=== PATIENT | male | born 1985 | race Caucasian/White ===

== ENCOUNTER 2016-06-16 16:11 | Inpatient (IN) | payer MEDICAID ==
[~2016-06-16] VITALS: Ht 175.3 cm; Wt 109.4 kg
[~2016-06-16 16:11] MED LIST: BUPR200T2 PO; CLON1TAB PO; INSUINJ37 SUBCUT; QUET300T14 PO
[2016-06-16] MEDS ORDERED: SODIUM CHLORIDE 0.9% 1,000 ML IVB ONE (16:27)
[2016-06-16 16:45] LABS: Basophils # (auto) 0 uL; Basophils % (auto) 0.2 % (0.0-2.0); Eosinophils # (auto) 0 uL; Eosinophils % (auto) 0.1 % (0.0-7.0); Hemoglobin 14.5 g/dL (13.5-17.5); Lymphocytes % (auto) 18.1 % (10.0-50.0); Mean Corpuscular Hemoglobin 30.3 pg (28.0-32.0); Mean Corpuscular Hgb Conc. 33.7 g/dL (32.0-36.0); Mean Platelet Volume 8.2 fL (7.4-10.4); Monocytes # (auto) 0.7 uL; Monocytes % (auto) 6.3 % (0.0-12.0); Neutrophils # (auto) 8.5 uL; Neutrophils % (auto) 75.3 % (37.0-80.0); Platelet Count (auto) 280 10^3/uL (140-450); Red Cell Distribution Width 15.9 % (11.6-16.0); White Blood Cell 11.3 10^3/uL (4.4-10.8)
[2016-06-16 17:01] LABS: INR 1.01 (0.9-1.15); Partial Thromboplastin Time 24.5 sec (22.64-33.71); Prothrombin Time 10.9 sec (9.37-12.3)
[2016-06-16 17:21] LABS: Albumin 3.6 g/dL (3.4-5.0); BUN/Creatinine Ratio 17.5; Calcium 7.9 mg/dL (8.5-10.1); Magnesium 1.8 mg/dL (1.6-2.6); Potassium 3.2 mmol/L (3.5-5.1)
[2016-06-16 17:23] LABS: Bilirubin, Total 0.7 mg/dL (0.2-1.0); Total Protein 7.1 g/dL (6.4-8.2)
[2016-06-16] MEDS ORDERED: KETOROLAC TROMETH 30 MG/ML 1ML VIAL IV ONE ×2 (17:30→21:15)
[2016-06-16 17:32] LABS: Urine Bilirubin Negative (Negative); Urine Blood Negative /uL (Negative); Urine Color Yellow (Yellow); Urine Nitrite Negative (Negative); Urine RBC <1 /hpf (0 - 3); Urine Squamous Epithelial Cell FEW /hpf (<5); Urine Urobilinogen Normal (Negative); Urine pH 5.5 (5.0-8.0)
[2016-06-16 17:35] LABS: Urine Glucose 4+ mg/dL (Normal); Urine Ketone 2+ (Negative)
[2016-06-16] MEDS ORDERED: InsuLIN R (HUMAN) 100 UNITS in SODIUM CHL 0.9% 99 ML IV SCH (19:44)
[2016-06-16] MEDS ORDERED: DEXTROSE (50%) 50ML SYRG IV PRN (19:45)
[2016-06-16] MEDS: ACCU-CHEK COMFORT CURVE STRIP VI SCH ×4 (20:00→23:15)
[2016-06-16] MEDS ORDERED: InsuLIN REG 1unit/0.01ml Soln (100units/ml) ONE (20:32)
[2016-06-16] MEDS: SODIUM CHLORIDE 0.9% 1,000 ML IV SCH ×2 (20:34→21:44)
[2016-06-16] MEDS ORDERED: ACETAMINOPHEN 325 MG TAB PO ONE (21:00)
[2016-06-16 21:14] LABS: BUN/Creatinine Ratio 11.5; Potassium 3.2 mmol/L (3.5-5.1)
[2016-06-16] MEDS ORDERED: PANTOPRAZOLE SODIUM 40 MG/10 ML VIAL IV ONE ×2 (22:30→23:15)
[2016-06-16] MEDS ORDERED: NITROGLYCERIN 0.4 MG SL TAB SL PRN (23:15)
[2016-06-16] MEDS ORDERED: MORPHINE SULF INJ 2 MG/ML SYRINGE 1ML IV PRN (23:15)
[2016-06-16] MEDS ORDERED: TEMAZEPAM 15 MG CAP PO PRN (23:15)
[2016-06-16] MEDS ORDERED: SODIUM CHLORIDE 0.9% 1,000 ML IV SCH (23:44)
[2016-06-17 00:08] LABS: Amylase 26 U/L (25-115)
[2016-06-17] MEDS: ACCU-CHEK COMFORT CURVE STRIP VI SCH ×11 (00:20→20:16)
[2016-06-17] MEDS: NALBUPHINE HCL 10 MG/1ml INJECTION IV PRN ×3 (00:31→13:20)
[2016-06-17 01:51] LABS: BUN/Creatinine Ratio 12.3; Calcium 7.6 mg/dL (8.5-10.1)
[2016-06-17 01:54] LABS: Potassium 2.7 mmol/L (3.5-5.1)
[2016-06-17] MEDS: ACETAMINOPHEN 325 MG TAB PO PRN (01:58)
[2016-06-17] MEDS ORDERED: POTASSIUM CHL 20 Meq TABLET PO ONE (02:15)
[2016-06-17] MEDS ORDERED: CALCIUM CARB 500 MG CHEW TAB PO PRN (02:30)
[2016-06-17] MEDS: ONDANSETRON HCL 4 MG/2 ML VIAL IV PRN ×5 (03:24→20:40)
[2016-06-17 04:20] LABS: Basophils # (auto) 0 uL; Basophils % (auto) 0.3 % (0.0-2.0); Eosinophils # (auto) 0.1 uL; Hematocrit 35.5 % (41.0-53.0); Mean Corpuscular Hemoglobin 30.8 pg (28.0-32.0); Mean Corpuscular Hgb Conc. 33.8 g/dL (32.0-36.0); Mean Corpuscular Volume 90.9 fL (80.0-100.0); Mean Platelet Volume 8.3 fL (7.4-10.4); Monocytes # (auto) 0.5 uL; Monocytes % (auto) 6.7 % (0.0-12.0); Neutrophils # (auto) 5.6 uL; Platelet Count (auto) 189 10^3/uL (140-450); Red Cell Distribution Width 15.7 % (11.6-16.0); White Blood Cell 8.2 10^3/uL (4.4-10.8)
[2016-06-17 04:27] LABS: Albumin 2.8 g/dL (3.4-5.0); BUN/Creatinine Ratio 15.9; Bilirubin, Total 1.1 mg/dL (0.2-1.0); Calcium 7.6 mg/dL (8.5-10.1); Potassium 3.1 mmol/L (3.5-5.1); Total Protein 5.6 g/dL (6.4-8.2)
[2016-06-17] MEDS: SODIUM CHLORIDE 0.9% 1,000 ML IV SCH ×4 (04:40→21:45)
[2016-06-17] MEDS ORDERED: DEXTROSE (50%) 50ML SYRG IV PRN (07:15)
[2016-06-17] MEDS: InsuLIN REG 1unit/0.01ml Soln (100units/ml) SC SCH ×4 (08:26→20:40)
[2016-06-17] MEDS ORDERED: ENOXAPARIN SOD 30 MG/0.3 ML SYRINGE SC SCH (10:00)
[2016-06-17] MEDS: PANTOPRAZOLE SODIUM 40 MG/10 ML VIAL IV SCH (11:10)
[2016-06-17] MEDS: ENOXAPARIN SOD 40 MG/0.4 ML SYRINGE SC SCH (11:10)
[2016-06-17] MEDS: HYDROcodone-ACET 5/325MG TAB PO PRN ×3 (11:21→21:54)
[2016-06-17 11:40] LABS: BUN/Creatinine Ratio 20.3; Calcium 8.2 mg/dL (8.5-10.1); Potassium 3.5 mmol/L (3.5-5.1)
[2016-06-17 14:32] LABS: Amylase 39 U/L (25-115)
[2016-06-17 15:11] VITALS: BP 124/86
[2016-06-17] MEDS ORDERED: FAM20T PO (16:06)
[2016-06-17] MEDS: HYDROmorphone HCL 2 MG/ML VL IV PRN ×2 (16:30→20:44)
[2016-06-17 17:28] VITALS: BP 135/82
[2016-06-17] MEDS: Boost Glucose Control 8 Ounces PO SCH ×2 (18:26→21:45)
[2016-06-17] MEDS: buPROPion HCL 100 MG TAB PO SCH (18:27)
[2016-06-17] MEDS: QUEtiapine FUMARATE 100 MG TAB PO SCH (21:45)
[2016-06-17] MEDS: clonazePAM 0.5 MG TAB PO PRN (21:46)
[2016-06-17] MEDS: INSULIN DETEMIR(LEVEMIR) 1unit/0.01ml Soln (100units/ml) SC SCH (21:53)
[2016-06-17 22:00] VITALS: BP 133/81
[2016-06-18] MEDS: ACCU-CHEK COMFORT CURVE STRIP VI SCH ×7 (00:24→23:56)
[2016-06-18] MEDS ORDERED: DEXTROSE (50%) 50ML SYRG IV PRN (03:00)
[2016-06-18] MEDS: InsuLIN REG 1unit/0.01ml Soln (100units/ml) SC SCH ×7 (03:31→23:56)
[2016-06-18] MEDS: SODIUM CHLORIDE 0.9% 1,000 ML IV SCH ×4 (04:24→23:57)
[2016-06-18 05:30] VITALS: BP 112/67
[2016-06-18] MEDS: Boost Glucose Control 8 Ounces PO SCH ×4 (06:26→22:22)
[2016-06-18] MEDS: buPROPion HCL 100 MG TAB PO SCH ×2 (06:31→19:31)
[2016-06-18 06:33] LABS: Basophils # (auto) 0 uL; Basophils % (auto) 0.3 % (0.0-2.0); Eosinophils # (auto) 0.1 uL; Eosinophils % (auto) 1.8 % (0.0-7.0); Hematocrit 39.5 % (41.0-53.0); Hemoglobin 13.3 g/dL (13.5-17.5); Lymphocytes # (auto) 1.3 uL; Lymphocytes % (auto) 25.5 % (10.0-50.0); Mean Corpuscular Hemoglobin 30.8 pg (28.0-32.0); Mean Corpuscular Hgb Conc. 33.7 g/dL (32.0-36.0); Mean Corpuscular Volume 91.2 fL (80.0-100.0); Mean Platelet Volume 8.9 fL (7.4-10.4); Monocytes # (auto) 0.3 uL; Monocytes % (auto) 5.2 % (0.0-12.0); Neutrophils # (auto) 3.4 uL; Neutrophils % (auto) 67.2 % (37.0-80.0); Platelet Count (auto) 161 10^3/uL (140-450); White Blood Cell 5.1 10^3/uL (4.4-10.8)
[2016-06-18 07:05] LABS: Bilirubin, Total 0.7 mg/dL (0.2-1.0); Calcium 8.5 mg/dL (8.5-10.1); Total Protein 6.2 g/dL (6.4-8.2)
[2016-06-18 07:14] LABS: Potassium 2.8 mmol/L (3.5-5.1)
[2016-06-18] MEDS: HYDROmorphone HCL 2 MG/ML VL IV PRN ×4 (08:21→23:56)
[2016-06-18] MEDS: ONDANSETRON HCL 4 MG/2 ML VIAL IV PRN ×4 (08:22→23:56)
[2016-06-18 09:00] VITALS: BP 136/82
[2016-06-18] MEDS: ENOXAPARIN SOD 40 MG/0.4 ML SYRINGE SC SCH (10:29)
[2016-06-18] MEDS: PANTOPRAZOLE SODIUM 40 MG/10 ML VIAL IV SCH (10:29)
[2016-06-18] MEDS: HYDROcodone-ACET 5/325MG TAB PO PRN ×3 (10:30→20:40)
[2016-06-18] MEDS: clonazePAM 0.5 MG TAB PO PRN ×2 (10:30→22:30)
[2016-06-18 13:00] VITALS: BP 142/82
[2016-06-18] MEDS: ACETAMINOPHEN 325 MG TAB PO PRN (14:32)
[2016-06-18] MEDS ORDERED: POTASSIUM CHLORIDE 40 MEQ, LIDOCAINE 1% (LOCAL ANESTH.) 4 ML in SODIUM CHL 0.9% 250 ML IV ONE (15:00)
[2016-06-18 17:00] VITALS: BP 133/84
[2016-06-18 22:00] VITALS: BP 114/54
[2016-06-18] MEDS: QUEtiapine FUMARATE 100 MG TAB PO SCH (22:30)
[2016-06-18 22:47] VITALS: BP 138/95
[2016-06-19] MEDS: INSULIN DETEMIR(LEVEMIR) 1unit/0.01ml Soln (100units/ml) SC SCH (00:45)
[2016-06-19] MEDS: ACCU-CHEK COMFORT CURVE STRIP VI SCH ×2 (05:16→08:05)
[2016-06-19] MEDS: InsuLIN REG 1unit/0.01ml Soln (100units/ml) SC SCH ×2 (05:21→08:00)
[2016-06-19] MEDS: ONDANSETRON HCL 4 MG/2 ML VIAL IV PRN ×3 (05:21→13:09)
[2016-06-19] MEDS: HYDROmorphone HCL 2 MG/ML VL IV PRN ×2 (05:26→09:35)
[2016-06-19] MEDS: Boost Glucose Control 8 Ounces PO SCH ×2 (05:27→12:55)
[2016-06-19] MEDS: buPROPion HCL 100 MG TAB PO SCH (06:46)
[2016-06-19] MEDS: HYDROcodone-ACET 5/325MG TAB PO PRN (08:02)
[2016-06-19 08:39] LABS: Basophils # (auto) 0 uL; Basophils % (auto) 0.3 % (0.0-2.0); Eosinophils # (auto) 0 uL; Hemoglobin 12.3 g/dL (13.5-17.5); Lymphocytes # (auto) 0.9 uL; Lymphocytes % (auto) 21.1 % (10.0-50.0); Mean Corpuscular Hgb Conc. 34.2 g/dL (32.0-36.0); Mean Corpuscular Volume 90.6 fL (80.0-100.0); Monocytes # (auto) 0.3 uL; Monocytes % (auto) 7.9 % (0.0-12.0); Neutrophils % (auto) 69.7 % (37.0-80.0); Platelet Count (auto) 132 10^3/uL (140-450); Red Cell Distribution Width 16.1 % (11.6-16.0); White Blood Cell 4.2 10^3/uL (4.4-10.8)
[2016-06-19 09:02] LABS: Albumin 2.9 g/dL (3.4-5.0); Bilirubin, Total 0.5 mg/dL (0.2-1.0); Calcium 8.4 mg/dL (8.5-10.1); Potassium 3.3 mmol/L (3.5-5.1); Total Protein 6.1 g/dL (6.4-8.2)
[2016-06-19] MEDS: PANTOPRAZOLE SODIUM 40 MG/10 ML VIAL IV SCH (09:34)
[2016-06-19] MEDS: ENOXAPARIN SOD 40 MG/0.4 ML SYRINGE SC SCH (09:35)
[2016-06-19] MEDS: SODIUM CHLORIDE 0.9% 1,000 ML IV SCH (09:41)
[2016-06-19] MEDS: clonazePAM 0.5 MG TAB PO PRN (10:46)
[2016-06-19] MEDS ORDERED: POTASSIUM CHL 10 Meq TABLET PO ONE (11:15)
[2016-06-19 11:50] VITALS: BP 131/53
[2016-06-19] MEDS: NALBUPHINE HCL 10 MG/1ml INJECTION IV PRN (12:53)
== END 2016-06-19 14:55 | disposition home or self-care (01) | DRG 420 ==
LOC: EDBD 16:11 → ER 16:11 → EDUNIT# 16:11 → TELE 16:12 → TELE-E-ADS 06-17 15:19 → TELE-EAST 06-17 16:56
PROVIDERS: ADMIT Nurse Practitioner; ATTEND Internal Medicine
DX: E10.10 Type 1 diabetes mellitus with ketoacidosis without coma (principal); E44.0 Moderate protein-calorie malnutrition; F10.129 Alcohol abuse with intoxication, unspecified; E87.1 Hypo-osmolality and hyponatremia; E87.6 Hypokalemia; F12.90 Cannabis use, unspecified, uncomplicated; F17.210 Nicotine dependence, cigarettes, uncomplicated; F32.9 Major depressive disorder, single episode, unspecified; F41.9 Anxiety disorder, unspecified; J32.2 Chronic ethmoidal sinusitis; K21.9 Gastro-esophageal reflux disease without esophagitis; K29.20 Alcoholic gastritis without bleeding; Z79.4 Long term (current) use of insulin; Z59.0 Homelessness; Z79.899 Other long term (current) drug therapy; Z82.49 Family history of ischemic heart disease and other diseases of the circulatory system; Z91.14 Patient's other noncompliance with medication regimen; Z91.013 Allergy to seafood; Z91.048 Other nonmedicinal substance allergy status; Z68.35 Body mass index [BMI] 35.0-35.9, adult
CPT/HCPCS: 36415; 36600; 70450; 70486; 71010; 80048; 80053; 80307; 80320; 81001; 82010; 82150; 82805; 82962; 83036; 83690; 83735; 85025; 85610; 85730; 96361; 96372; 96374; 96375; 96376; 99291; C9113; J1815; J1885; J2001; J2405

== ENCOUNTER 2016-06-25 13:40 | Emergency (ER) | payer MEDICAID ==
[~2016-06-25] VITALS: Ht 175.3 cm; Wt 68.0 kg
[~2016-06-25 13:40] MED LIST changes: -BUPR200T2 PO; +FAM20T PO; -QUET300T14 PO
[2016-06-25 17:10] LABS: Urine RBC None Seen /hpf (0 - 3)
[2016-06-25 17:11] LABS: Basophils # (auto) 0 uL; Basophils % (auto) 0.5 % (0.0-2.0); Eosinophils # (auto) 0 uL; Eosinophils % (auto) 0.1 % (0.0-7.0); Hematocrit 42.9 % (41.0-53.0); Hemoglobin 14.5 g/dL (13.5-17.5); Lymphocytes # (auto) 1.4 uL; Lymphocytes % (auto) 22.9 % (10.0-50.0); Mean Corpuscular Hemoglobin 31.3 pg (28.0-32.0); Mean Corpuscular Hgb Conc. 33.7 g/dL (32.0-36.0); Mean Platelet Volume 8.4 fL (7.4-10.4); Monocytes # (auto) 0.9 uL; Monocytes % (auto) 14.6 % (0.0-12.0); Neutrophils # (auto) 3.8 uL; Neutrophils % (auto) 61.9 % (37.0-80.0); Platelet Count (auto) 357 10^3/uL (140-450); Red Cell Distribution Width 16.5 % (11.6-16.0); White Blood Cell 6.1 10^3/uL (4.4-10.8)
[2016-06-25 17:16] LABS: Urine Bilirubin Negative (Negative); Urine Blood Negative /uL (Negative); Urine Color Yellow (Yellow); Urine Glucose 4+ mg/dL (Normal); Urine Ketone 4+ (Negative); Urine Nitrite Negative (Negative)
[2016-06-25] MEDS ORDERED: SODIUM CHLORIDE 0.9% 1,000 ML IV ONE (17:18)
[2016-06-25 17:25] LABS: Albumin 4.3 g/dL (3.4-5.0); BUN/Creatinine Ratio 11.2; Bilirubin, Total 0.9 mg/dL (0.2-1.0); Calcium 9.6 mg/dL (8.5-10.1); Potassium 3.8 mmol/L (3.5-5.1); Total Protein 8.2 g/dL (6.4-8.2)
[2016-06-25 17:26] VITALS: BP 152/110
[2016-06-25] MEDS ORDERED: InsuLIN REG 1unit/0.01ml Soln (100units/ml) IV ONE (17:30)
== END 2016-06-25 18:38 | disposition home or self-care (01) ==
LOC: ER 13:43
DX: E11.65 Type 2 diabetes mellitus with hyperglycemia (principal); F17.210 Nicotine dependence, cigarettes, uncomplicated; F12.10 Cannabis abuse, uncomplicated; K21.9 Gastro-esophageal reflux disease without esophagitis; Z59.0 Homelessness; Z79.4 Long term (current) use of insulin; Z88.8 Allergy status to other drugs, medicaments and biological substances; Z91.013 Allergy to seafood
CPT/HCPCS: 36415; 71010; 80053; 80307; 81001; 82962; 85025; 96374; 99285; J1815

== ENCOUNTER 2016-07-06 06:15 | Observation (INO) | payer MEDICAID ==
[~2016-07-06] VITALS: Ht 180.3 cm; Wt 86.2 kg
[2016-07-06] MEDS ORDERED: SODIUM CHLORIDE 0.9% 1,000 ML IVB ONE (07:35)
[2016-07-06] MEDS ORDERED: KETOROLAC TROMETH 30 MG/ML 1ML VIAL IV ONE (07:45)
[2016-07-06] MEDS ORDERED: FAMOTIDINE 20 MG TAB PO ONE (07:45)
[2016-07-06] MEDS ORDERED: METOCLOPRAMIDE HCL 5MG/ml INJ 2ml VIAL IV ONE (07:45)
[2016-07-06] MEDS ORDERED: DONNATAL 5ml ORAL Elix (BELLADONNA ALK-PHENOBARB) PO ONE (07:45)
[2016-07-06] MEDS ORDERED: ALUM & MAG HYDROX-SIMETH LIQ(MAALOX) 30 ML PO ONE (07:45)
[2016-07-06 08:14] LABS: Basophils # (auto) 0 uL; Basophils % (auto) 0.3 % (0.0-2.0); Eosinophils # (auto) 0 uL; Hematocrit 44.2 % (41.0-53.0); Lymphocytes # (auto) 1.1 uL; Lymphocytes % (auto) 7.7 % (10.0-50.0); Mean Corpuscular Hemoglobin 32.4 pg (28.0-32.0); Mean Corpuscular Volume 95.1 fL (80.0-100.0); Mean Platelet Volume 8.7 fL (7.4-10.4); Monocytes # (auto) 0.5 uL; Monocytes % (auto) 3.3 % (0.0-12.0); Neutrophils % (auto) 88.7 % (37.0-80.0); Platelet Count (auto) 310 10^3/uL (140-450); Red Cell Distribution Width 16.1 % (11.6-16.0); White Blood Cell 14.6 10^3/uL (4.4-10.8)
[2016-07-06 08:32] LABS: Albumin 3.5 g/dL (3.4-5.0); BUN/Creatinine Ratio 11.8; Bilirubin, Total 0.3 mg/dL (0.2-1.0); Calcium 8.8 mg/dL (8.5-10.1); Potassium 3.1 mmol/L (3.5-5.1); Total Protein 6.9 g/dL (6.4-8.2)
[2016-07-06 08:33] LABS: Magnesium 2.4 mg/dL (1.6-2.6)
[2016-07-06] MEDS ORDERED: POTASSIUM CHL 10% (20 MEQ/15ML) ORAL SOLN PO ONE (08:45)
[2016-07-06] MEDS: POTASSIUM CHL 20MEQ/100ML 100 ML IV SCH ×2 (08:59→11:40)
[2016-07-06] MEDS ORDERED: NALBUPHINE HCL 10 MG/1ml INJECTION IV ONE (12:15)
[2016-07-06 14:55] VITALS: BP 152/80
== END 2016-07-06 16:56 | disposition home or self-care (01) | DRG 251 ==
LOC: ER 06:19 → OVERFLOW 07:37 → ER 16:56
PROVIDERS: ADMIT Emergency Medicine; ATTEND Emergency Medicine
DX: R10.84 Generalized abdominal pain (principal); E11.65 Type 2 diabetes mellitus with hyperglycemia; F10.10 Alcohol abuse, uncomplicated; F12.10 Cannabis abuse, uncomplicated; K21.9 Gastro-esophageal reflux disease without esophagitis; F32.9 Major depressive disorder, single episode, unspecified; Z82.49 Family history of ischemic heart disease and other diseases of the circulatory system; F17.210 Nicotine dependence, cigarettes, uncomplicated
CPT/HCPCS: 36415; 74176; 80053; 80307; 82962; 83690; 83735; 85025; 96361; 96365; 96366; 96375; 99285; G0378; J1885; J2300; J2765; J3480

== ENCOUNTER 2016-10-22 05:23 | Inpatient (IN) | payer MEDICAID ==
[~2016-10-22] VITALS: Ht 175.3 cm; Wt 78.4 kg
[2016-10-22] MEDS ORDERED: HYDROmorphone HCL 2 MG/ML VL IV ONE (05:30)
[2016-10-22] MEDS ORDERED: DONNATAL 5ml ORAL Elix (BELLADONNA ALK-PHENOBARB) PO ONE (05:30)
[2016-10-22] MEDS ORDERED: LIDOCAINE VISCOUS 2% 15ML UD PO ONE (05:30)
[2016-10-22] MEDS ORDERED: ALUM & MAG HYDROX-SIMETH LIQ(MAALOX) 30 ML PO ONE (05:30)
[2016-10-22] MEDS ORDERED: SODIUM CHLORIDE 0.9% 1,000 ML IVB ONE (05:30)
[2016-10-22 05:56] LABS: Basophils # (auto) 0.2 uL; Basophils % (auto) 1.5 % (0.0-2.0); CONDITION Y; Eosinophils # (auto) 0 uL; Eosinophils % (auto) 0.4 % (0.0-7.0); Hematocrit 42.6 % (41.0-53.0); Hemoglobin 14.7 g/dL (13.5-17.5); Lymphocytes # (auto) 3.8 uL; Lymphocytes % (auto) 37.6 % (10.0-50.0); Mean Corpuscular Hemoglobin 30.4 pg (28.0-32.0); Mean Corpuscular Hgb Conc. 34.5 g/dL (32.0-36.0); Mean Corpuscular Volume 88.1 fL (80.0-100.0); Mean Platelet Volume 8.7 fL (7.4-10.4); Monocytes # (auto) 0.5 uL; Neutrophils # (auto) 5.6 uL; Neutrophils % (auto) 55.5 % (37.0-80.0); Platelet Count (auto) 472 10^3/uL (140-450); Red Cell Distribution Width 15.4 % (11.6-16.0); White Blood Cell 10.2 10^3/uL (4.4-10.8)
[2016-10-22] MEDS: PROMETHAZINE HCL 25 MG/ML 1ML IV PRN (06:03)
[2016-10-22 06:15] LABS: Albumin 4.2 g/dL (3.4-5.0); Calcium 8.9 mg/dL (8.5-10.1); Potassium 5.1 mmol/L (3.5-5.1)
[2016-10-22 06:25] LABS: Bilirubin, Total 0.4 mg/dL (0.2-1.0); Total Protein 8.3 g/dL (6.4-8.2)
[2016-10-22 06:44] LABS: Urine Bilirubin Negative (Negative); Urine Blood Negative /uL (Negative); Urine Color Yellow (Yellow); Urine Glucose 4+ mg/dL (Normal); Urine Ketone 2+ (Negative); Urine Mucus FEW (None Seen); Urine Nitrite Negative (Negative); Urine RBC 2 /hpf (0 - 3); Urine Squamous Epithelial Cell FEW /hpf (<5); Urine Urobilinogen Normal (Negative); Urine pH 5.5 (5.0-8.0)
[2016-10-22] MEDS ORDERED: SODIUM CHLORIDE 0.9% 1,000 ML IV ONE ×2 (07:38)
[2016-10-22] MEDS ORDERED: InsuLIN REG 1unit/0.01ml Soln (100units/ml) IV ONE (07:45)
[2016-10-22] MEDS ORDERED: ONDANSETRON HCL 4 MG/2 ML VIAL IV ONE (07:45)
[2016-10-22] MEDS ORDERED: MORPHINE SULFATE 4 MG/ML SYRG IV ONE (07:45)
[2016-10-22] MEDS ORDERED: PANTOPRAZOLE 40 MG/10 ML VIAL IV ONE (10:30)
[2016-10-22] MEDS ORDERED: FAMOTIDINE (10MG/ML) 2ML VL IV ONE (10:30)
[2016-10-22] MEDS ORDERED: LORazepam 2MG/ML-1ML VIAL IV PRN (10:30)
[2016-10-22] MEDS ORDERED: chlordiazePOXIDE HCL 25 MG CAP PO PRN (10:30)
[2016-10-22] MEDS ORDERED: ALUM & MAG HYDROX-SIMETH LIQ(MAALOX) 30 ML PO PRN (10:30)
[2016-10-22] MEDS ORDERED: DEXTROSE (50%) 50ML SYRG IV PRN (10:45)
[2016-10-22] MEDS ORDERED: ONDANSETRON HCL 4 MG/2 ML VIAL IV PRN (10:45)
[2016-10-22] MEDS ORDERED: TEMAZEPAM 15 MG CAP PO PRN (10:45)
[2016-10-22] MEDS ORDERED: ACETAMINOPHEN 325 MG TAB PO PRN (10:45)
[2016-10-22] MEDS ORDERED: clonazePAM 0.5 MG TAB PO ONE (10:45)
[2016-10-22] MEDS ORDERED: DOCUSATE SOD 100 MG CAP PO PRN (10:45)
[2016-10-22] MEDS ORDERED: THIAMINE INJ 100 MG, MULTIPLE VITAMIN 10 ML, FOLIC ACID 1 MG, MAGNESIUM SULF SDV 50% 8 ... IV SCH ×5 (10:45)
[2016-10-22] MEDS ORDERED: MORPHINE SULF INJ 2 MG/ML SYRINGE 1ML IV PRN (10:45)
[2016-10-22] MEDS ORDERED: HYDROcodone-ACET 5/325MG TAB PO PRN (10:45)
[2016-10-22] MEDS ORDERED: MULTIPLE VITAMIN TAB PO ONE (11:00)
[2016-10-22] MEDS ORDERED: ATENOLOL 25 MG TAB PO ONE (11:00)
[2016-10-22] MEDS ORDERED: GABAPENTIN 300 MG CAP PO ONE (11:00)
[2016-10-22] MEDS: SODIUM CHLORIDE 0.9% 1,000 ML IV SCH ×2 (11:22→19:05)
[2016-10-22] MEDS: ACCU-CHEK COMFORT CURVE STRIP VI SCH ×3 (11:23→21:48)
[2016-10-22] MEDS: InsuLIN REG 1unit/0.01ml Soln (100units/ml) SC SCH ×3 (11:26→21:48)
[2016-10-22] MEDS: GABAPENTIN 300 MG CAP PO SCH ×2 (13:35→21:47)
[2016-10-22 14:32] VITALS: BP 125/60
[2016-10-22 14:44] VITALS: BP 125/60
[2016-10-22 16:00] VITALS: BP 100/65
[2016-10-22] MEDS: HYDROmorphone HCL 2 MG/ML VL IV PRN ×2 (19:06→23:06)
[2016-10-22 20:00] VITALS: BP 118/68
[2016-10-22] MEDS ORDERED: QUET25TA37 PO (21:12)
[2016-10-22] MEDS ORDERED: INSUINJ IJ (21:13)
[2016-10-22] MEDS: ATENOLOL 25 MG TAB PO SCH (21:47)
[2016-10-22] MEDS: clonazePAM 0.5 MG TAB PO SCH (21:48)
[2016-10-22] MEDS: INSULIN DETEMIR(LEVEMIR) 1unit/0.01ml Soln (100units/ml) SC SCH (21:49)
[2016-10-22 22:00] VITALS: BP 118/68
[2016-10-22] MEDS ORDERED: CLON05T PO (22:53)
[2016-10-23] MEDS: HYDROmorphone HCL 2 MG/ML VL IV PRN ×5 (03:15→20:24)
[2016-10-23] MEDS: SODIUM CHLORIDE 0.9% 1,000 ML IV SCH ×3 (03:24→20:24)
[2016-10-23 05:30] VITALS: BP 143/82
[2016-10-23] MEDS: GABAPENTIN 300 MG CAP PO SCH ×3 (06:27→22:29)
[2016-10-23 06:35] LABS: Basophils # (auto) 0 uL; Basophils % (auto) 0.3 % (0.0-2.0); CONDITION Y; Eosinophils # (auto) 0 uL; Eosinophils % (auto) 0.5 % (0.0-7.0); Hemoglobin 12.2 g/dL (13.5-17.5); Lymphocytes # (auto) 2.1 uL; Lymphocytes % (auto) 33.9 % (10.0-50.0); Mean Corpuscular Hemoglobin 30.1 pg (28.0-32.0); Mean Corpuscular Volume 88.7 fL (80.0-100.0); Mean Platelet Volume 8.6 fL (7.4-10.4); Monocytes # (auto) 0.3 uL; Monocytes % (auto) 5.5 % (0.0-12.0); Neutrophils # (auto) 3.8 uL; Neutrophils % (auto) 59.8 % (37.0-80.0); Platelet Count (auto) 332 10^3/uL (140-450); Red Cell Distribution Width 15.4 % (11.6-16.0); White Blood Cell 6.3 10^3/uL (4.4-10.8)
[2016-10-23] MEDS: InsuLIN REG 1unit/0.01ml Soln (100units/ml) SC SCH ×4 (06:53→22:39)
[2016-10-23] MEDS: ACCU-CHEK COMFORT CURVE STRIP VI SCH ×4 (06:53→22:29)
[2016-10-23 06:59] LABS: Albumin 3.2 g/dL (3.4-5.0); BUN/Creatinine Ratio 10.8; Bilirubin, Total 0.7 mg/dL (0.2-1.0); Calcium 7.7 mg/dL (8.5-10.1); Potassium 3.5 mmol/L (3.5-5.1); Total Protein 6.2 g/dL (6.4-8.2)
[2016-10-23 07:57] VITALS: BP 127/77
[2016-10-23 08:00] VITALS: BP 127/77
[2016-10-23] MEDS: PANTOPRAZOLE 40 MG/10 ML VIAL IV SCH (09:54)
[2016-10-23] MEDS: MULTIPLE VITAMIN TAB PO SCH (09:54)
[2016-10-23] MEDS: clonazePAM 0.5 MG TAB PO SCH ×2 (09:55→22:29)
[2016-10-23] MEDS: ATENOLOL 25 MG TAB PO SCH ×2 (09:59→22:29)
[2016-10-23] MEDS ORDERED: FAMOTIDINE (10MG/ML) 2ML VL IV SCH (10:00)
[2016-10-23 11:53] VITALS: BP 127/46
[2016-10-23] MEDS: PROMETHAZINE HCL 25 MG/ML 1ML IV PRN (13:33)
[2016-10-23 16:58] VITALS: BP 124/78
[2016-10-23 22:00] VITALS: BP 106/58
[2016-10-23] MEDS: INSULIN DETEMIR(LEVEMIR) 1unit/0.01ml Soln (100units/ml) SC SCH (22:39)
[2016-10-24] MEDS: HYDROmorphone HCL 2 MG/ML VL IV PRN ×4 (00:25→11:48)
[2016-10-24] MEDS: SODIUM CHLORIDE 0.9% 1,000 ML IV SCH (04:16)
[2016-10-24 05:00] VITALS: BP 122/71
[2016-10-24] MEDS: GABAPENTIN 300 MG CAP PO SCH (06:11)
[2016-10-24] MEDS: ACCU-CHEK COMFORT CURVE STRIP VI SCH (06:31)
[2016-10-24] MEDS: InsuLIN REG 1unit/0.01ml Soln (100units/ml) SC SCH (06:31)
[2016-10-24 08:48] VITALS: BP 121/76
[2016-10-24] MEDS: PANTOPRAZOLE 40 MG/10 ML VIAL IV SCH (09:44)
[2016-10-24] MEDS: ATENOLOL 25 MG TAB PO SCH (09:45)
[2016-10-24] MEDS: MULTIPLE VITAMIN TAB PO SCH (09:45)
[2016-10-24] MEDS: clonazePAM 0.5 MG TAB PO SCH (09:45)
[2016-10-24] MEDS: PROMETHAZINE HCL 25 MG/ML 1ML IV PRN (09:55)
[2016-10-24 11:31] VITALS: BP 121/76
[2016-10-24 12:15] VITALS: BP 117/70
== END 2016-10-24 12:30 | disposition home or self-care (01) | DRG 241 ==
LOC: EDBD 05:23 → ER 05:23 → OVERFLOW 05:24 → EAST 13:55 → TELE-E-ADS 14:03 → EAST 15:05
PROVIDERS: ADMIT Internal Medicine; ATTEND Internal Medicine
DX: K29.20 Alcoholic gastritis without bleeding (principal); E10.10 Type 1 diabetes mellitus with ketoacidosis without coma; E10.21 Type 1 diabetes mellitus with diabetic nephropathy; K31.84 Gastroparesis; E10.43 Type 1 diabetes mellitus with diabetic autonomic (poly)neuropathy; E87.1 Hypo-osmolality and hyponatremia; Z93.4 Other artificial openings of gastrointestinal tract status; K76.0 Fatty (change of) liver, not elsewhere classified; K80.20 Calculus of gallbladder without cholecystitis without obstruction; D47.3 Essential (hemorrhagic) thrombocythemia; F17.210 Nicotine dependence, cigarettes, uncomplicated; K21.9 Gastro-esophageal reflux disease without esophagitis; F32.9 Major depressive disorder, single episode, unspecified; G40.909 Epilepsy, unspecified, not intractable, without status epilepticus; F41.9 Anxiety disorder, unspecified; F10.239 Alcohol dependence with withdrawal, unspecified; Z59.0 Homelessness; Z91.013 Allergy to seafood; Z82.49 Family history of ischemic heart disease and other diseases of the circulatory system; Z91.018 Allergy to other foods; Z79.899 Other long term (current) drug therapy; Z87.828 Personal history of other (healed) physical injury and trauma
CPT/HCPCS: 36415; 74176; 80053; 80307; 81001; 82150; 82962; 83036; 83690; 84443; 85025; 94761; 96361; 96374; 96375; C9113; J1815; J2405; J3490

== ENCOUNTER 2016-11-03 00:42 | Emergency (ER) | payer MEDICAID ==
[~2016-11-03] VITALS: Ht 177.8 cm; Wt 72.6 kg
[~2016-11-03 00:42] MED LIST changes: +CLON05T PO; -CLON1TAB PO; -FAM20T PO; +INSUINJ IJ; +QUET25TA37 PO
[2016-11-03] MEDS ORDERED: FLUORESCEIN SOD 1 MG TEST STRIP RIGHTEYE ONE (07:30)
[2016-11-03] MEDS ORDERED: FLUORESCEIN SOD 1 MG TEST STRIP LEFTEYE ONE (07:30)
[2016-11-03] MEDS ORDERED: TETRACAINE HCL 0.5% OPTH(EYE) SOLN 4ML EACHEYE ONE (07:30)
[2016-11-03 08:56] LABS: Basophils # (auto) 0 uL; Basophils % (auto) 0.3 % (0.0-2.0); CONDITION Y; Eosinophils # (auto) 0 uL; Eosinophils % (auto) 0.1 % (0.0-7.0); Hematocrit 42.9 % (41.0-53.0); Hemoglobin 14.4 g/dL (13.5-17.5); Lymphocytes # (auto) 2.1 uL; Lymphocytes % (auto) 18.2 % (10.0-50.0); Mean Corpuscular Hgb Conc. 33.7 g/dL (32.0-36.0); Mean Corpuscular Volume 88.9 fL (80.0-100.0); Mean Platelet Volume 8.9 fL (6.9-10.8); Monocytes # (auto) 0.8 uL; Monocytes % (auto) 7.2 % (0.0-12.0); Neutrophils # (auto) 8.4 uL; Neutrophils % (auto) 74.2 % (37.0-80.0); Platelet Count (auto) 246 10^3/uL (140-450); Red Cell Distribution Width 16.1 % (11.8-14.3); White Blood Cell 11.3 10^3/uL (4.4-10.8)
[2016-11-03 09:19] LABS: Albumin 3.9 g/dL (3.4-5.0); BUN/Creatinine Ratio 15.1; Calcium 8.9 mg/dL (8.5-10.1); Magnesium 2.1 mg/dL (1.6-2.6); Potassium 3.8 mmol/L (3.5-5.1)
[2016-11-03 09:22] LABS: Bilirubin, Total 0.6 mg/dL (0.2-1.0); Total Protein 7.8 g/dL (6.4-8.2)
[2016-11-03 09:57] VITALS: BP 135/87
[2016-11-03 10:08] LABS: Urine Bilirubin Negative (Negative); Urine Blood TRACE /uL (Negative); Urine Color Yellow (Yellow); Urine Glucose 4+ mg/dL (Normal); Urine Ketone 4+ (Negative); Urine Nitrite Negative (Negative); Urine RBC 1 /hpf (0 - 3); Urine Urobilinogen Normal (Negative); Urine pH 5.5 (5.0-8.0)
[2016-11-03] MEDS ORDERED: ONDANSETRON HCL 4 MG/2 ML VIAL IV ONE (10:30)
[2016-11-03] MEDS ORDERED: PANTOPRAZOLE 40 MG TAB PO ONE (11:30)
== END 2016-11-03 11:56 | disposition home or self-care (01) ==
LOC: ER 00:52
DX: S00.83XA Contusion of other part of head, initial encounter (principal); H10.32 Unspecified acute conjunctivitis, left eye; K21.9 Gastro-esophageal reflux disease without esophagitis; E11.65 Type 2 diabetes mellitus with hyperglycemia; F17.210 Nicotine dependence, cigarettes, uncomplicated; Z91.013 Allergy to seafood; Z91.018 Allergy to other foods; W19.XXXA Unspecified fall, initial encounter; Y93.89 Activity, other specified; Y99.8 Other external cause status; Y92.89 Other specified places as the place of occurrence of the external cause
CPT/HCPCS: 36415; 80053; 81001; 83690; 83735; 85025; 96374; 99284; J2405

== ENCOUNTER 2017-05-16 18:04 | Observation (INO) | payer MEDICAID ==
[~2017-05-16] VITALS: Ht 175.3 cm; Wt 72.6 kg
[2017-05-16] MEDS ORDERED: InsuLIN REG 1unit/0.01ml Soln (100units/ml) IV ONE (20:00)
[2017-05-16 20:15] LABS: Basophils # (auto) 0 uL; Basophils % (auto) 0.5 % (0.0-2.0); Eosinophils # (auto) 0 uL; Eosinophils % (auto) 0.6 % (0.0-7.0); Hematocrit 41.2 % (41.0-53.0); Hemoglobin 13.6 g/dL (13.5-17.5); Lymphocytes # (auto) 2.4 uL; Lymphocytes % (auto) 33.6 % (10.0-50.0); Mean Corpuscular Hemoglobin 29.3 pg (28.0-32.0); Mean Corpuscular Hgb Conc. 32.9 g/dL (32.0-36.0); Mean Corpuscular Volume 89.2 fL (80.0-100.0); Monocytes # (auto) 0.6 uL; Monocytes % (auto) 8.4 % (0.0-12.0); Neutrophils % (auto) 56.9 % (37.0-80.0); Nucleated Red Blood Cells % 0.1 %; Platelet Count (auto) 253 10^3/uL (140-450); Red Blood Cells 4.62 10^6/uL (4.5-5.90); Red Cell Distribution Width 13.7 % (11.8-14.3); White Blood Cell 7.1 10^3/uL (4.4-10.8)
[2017-05-16 20:31] LABS: Albumin 3.3 g/dL (3.4-5.0); BUN/Creatinine Ratio 6.8; Calcium 8.1 mg/dL (8.5-10.1); Magnesium 2.1 mg/dL (1.6-2.6); Potassium 3.7 mmol/L (3.5-5.1)
[2017-05-16 20:34] LABS: Bilirubin, Total 0.2 mg/dL (0.2-1.0); Total Protein 6.9 g/dL (6.4-8.2)
[2017-05-16] MEDS ORDERED: LORazepam 2MG/ML-1ML VIAL IV ONE (20:45)
[2017-05-16] MEDS ORDERED: HALOPERIDOL LACTATE 5 MG/ML INJ VIAL IM ONE (20:45)
[2017-05-16] MEDS ORDERED: diphenhdrAMINE HCL 50 MG/1 ML VL IV ONE (20:45)
[2017-05-17 01:23] VITALS: BP 120/64
[2017-05-17] MEDS ORDERED: THIAMINE INJ 100 MG, MULTIPLE VITAMIN 10 ML, FOLIC ACID 1 MG, MAGNESIUM SULF SDV 50% 8 ... IV SCH ×5 (12:00)
== END 2017-05-16 23:11 | disposition home or self-care (01) | DRG 52 ==
LOC: ER 18:04 → EDBD 18:04 → OVERFLOW 19:35 → ER 23:11
PROVIDERS: ADMIT Emergency Medicine; ATTEND Emergency Medicine
DX: G92 Toxic encephalopathy (principal); E10.65 Type 1 diabetes mellitus with hyperglycemia; K21.9 Gastro-esophageal reflux disease without esophagitis; F12.10 Cannabis abuse, uncomplicated; F10.129 Alcohol abuse with intoxication, unspecified; F17.210 Nicotine dependence, cigarettes, uncomplicated; T50.995A Adverse effect of other drugs, medicaments and biological substances, initial encounter; Z82.49 Family history of ischemic heart disease and other diseases of the circulatory system; Y92.89 Other specified places as the place of occurrence of the external cause; Z59.0 Homelessness; Z91.14 Patient's other noncompliance with medication regimen
CPT/HCPCS: 36415; 71046; 80053; 80320; 82962; 83735; 85025; 93005; 96365; 96366; 96372; 96375; 99285; G0378; J1200; J1630; J1815; J2060; J7030

== ENCOUNTER 2018-05-04 20:32 | Emergency (ER) | payer MEDICAID ==
[~2018-05-04 20:32] MED LIST changes: +GABA100C9 PO; +IBUP800T24 PO; +INSU50IN SC; +ONDA4TAB5 PO; +PANC4200 PO; +PANT-36 PO
[2018-05-04] MEDS ORDERED: MULTIPLE VITAMIN 10 ML, MAGNESIUM SULF SDV 50% 8 MEQ in SODIUM CHLORIDE 0.9% 1,000 ML IV ONE (22:00)
[2018-05-04] MEDS ORDERED: SODIUM CHLORIDE 0.9% 1,000 ML IV ONE (22:00)
== END 2018-05-04 22:11 | disposition left against medical advice (07) ==
LOC: EDBD 20:32 → ER 20:37
DX: R11.2 Nausea with vomiting, unspecified (principal); E11.9 Type 2 diabetes mellitus without complications; K21.9 Gastro-esophageal reflux disease without esophagitis; F17.210 Nicotine dependence, cigarettes, uncomplicated; Z79.4 Long term (current) use of insulin; Z79.899 Other long term (current) drug therapy; Z59.0 Homelessness; Z53.29 Procedure and treatment not carried out because of patient's decision for other reasons
CPT/HCPCS: 99283; J7030; 82962

== ENCOUNTER 2018-05-05 01:18 | Emergency (ER) | payer MEDICAID ==
[~2018-05-05] VITALS: Ht 170.2 cm; Wt 72.6 kg
[2018-05-05] MEDS ORDERED: SODIUM CHLORIDE 0.9% 1,000 ML IVB ONE (03:27)
[2018-05-05] MEDS ORDERED: ONDANSETRON HCL 4 MG/2 ML VIAL IV ONE (03:30)
[2018-05-05] MEDS ORDERED: MVI in SODIUM CHLORIDE 0.9% 1,010 ML ONE (03:44)
[2018-05-05] MEDS ORDERED: MULTIPLE VITAMIN 10 ML, MAGNESIUM SULF SDV 50% 8 MEQ in SODIUM CHLORIDE 0.9% 1,000 ML IV ONE (04:00)
[2018-05-05 04:45] LABS: Urine WBC None Seen /hpf (0 - 3)
[2018-05-05 05:05] LABS: Urine Bacteria NONE SEEN /hpf (None Seen); Urine Blood Negative /uL (Negative); Urine Specific Gravity 1.001 (1.001-1.035)
[2018-05-05 05:47] LABS: Amphetamine Screen, Urine NEGATIVE (NEGATIVE); Barbiturate Scree,Urine NEGATIVE (NEGATIVE); Benzodiazephine Screen, Urine NEGATIVE (NEGATIVE); Cannabinoid Screen, Urine POSITIVE (NEGATIVE); Cocaine Screen, Urine NEGATIVE (NEGATIVE); Opiate Scree,Urine NEGATIVE (NEGATIVE); Phencyclidine Screen, Urine NEGATIVE (NEGATIVE)
[2018-05-05] MEDS ORDERED: PROCHLORPERAZINE EDISYLATE 5 MG/ML 2ML VIAL IV ONE (06:45)
[2018-05-05] MEDS ORDERED: PANTOPRAZOLE 40 MG/10 ML VIAL IV ONE (06:45)
[2018-05-05 07:02] LABS: Albumin 3.4 g/dL (3.4-5.0); Potassium 3.9 mmol/L (3.5-5.1)
[2018-05-05 07:04] LABS: Basophils # (auto) 0 uL; Basophils % (auto) 0.4 % (0.0-2.0); Eosinophils # (auto) 0 uL; Eosinophils % (auto) 0.1 % (0.0-7.0); Hematocrit 42.1 % (41.0-53.0); Hemoglobin 13.8 g/dL (13.5-17.5); Lymphocytes # (auto) 2.6 uL; Lymphocytes % (auto) 24.6 % (10.0-50.0); Mean Corpuscular Hemoglobin 28.1 pg (28.0-32.0); Mean Corpuscular Hgb Conc. 32.7 g/dL (32.0-36.0); Monocytes # (auto) 0.7 uL; Monocytes % (auto) 7.1 % (0.0-12.0); Neutrophils # (auto) 7.1 uL; Neutrophils % (auto) 67.8 % (37.0-80.0); Nucleated Red Blood Cells % 0.1 %; Platelet Count (auto) 177 10^3/uL (140-450); Red Blood Cells 4.89 10^6/uL (4.5-5.90); White Blood Cell 10.5 10^3/uL (4.4-10.8)
[2018-05-05 07:07] LABS: BUN/Creatinine Ratio 16.3; Bilirubin, Total 1.2 mg/dL (0.2-1.0); Total Protein 6.7 g/dL (6.4-8.2)
[2018-05-05 08:34] VITALS: BP 134/80
== END 2018-05-05 09:00 | disposition home or self-care (01) ==
LOC: ER 01:21
DX: S02.2XXA Fracture of nasal bones, initial encounter for closed fracture (principal); F10.129 Alcohol abuse with intoxication, unspecified; F17.210 Nicotine dependence, cigarettes, uncomplicated; F12.10 Cannabis abuse, uncomplicated; F32.9 Major depressive disorder, single episode, unspecified; E11.9 Type 2 diabetes mellitus without complications; K21.9 Gastro-esophageal reflux disease without esophagitis; Z59.0 Homelessness; Z79.4 Long term (current) use of insulin; Z79.899 Other long term (current) drug therapy; X58.XXXA Exposure to other specified factors, initial encounter; Y90.6 Blood alcohol level of 120-199 mg/100 ml; Y93.89 Activity, other specified; Y92.89 Other specified places as the place of occurrence of the external cause; Y99.8 Other external cause status
CPT/HCPCS: 36415; 70450; 80053; 80307; 80320; 81001; 82150; 83690; 85025; 96365; 96366; 96375; 99284; C9113; J0780; J3411; J3475

== ENCOUNTER 2018-05-05 14:25 | Inpatient (IN) | payer MEDICAID ==
[~2018-05-05] VITALS: Ht 175.3 cm; Wt 81.6 kg
[2018-05-05 15:37] LABS: Basophils # (auto) 0 uL; Basophils % (auto) 0.6 % (0.0-2.0); Eosinophils # (auto) 0 uL; Eosinophils % (auto) 0.1 % (0.0-7.0); Hemoglobin 13.9 g/dL (13.5-17.5); Lymphocytes # (auto) 1.4 uL; Lymphocytes % (auto) 20.9 % (10.0-50.0); Mean Corpuscular Hemoglobin 28.1 pg (28.0-32.0); Mean Corpuscular Hgb Conc. 32.4 g/dL (32.0-36.0); Mean Corpuscular Volume 86.5 fL (80.0-100.0); Monocytes # (auto) 0.6 uL; Monocytes % (auto) 8.5 % (0.0-12.0); Neutrophils # (auto) 4.6 uL; Neutrophils % (auto) 69.9 % (37.0-80.0); Nucleated Red Blood Cells % 0.2 %; Platelet Count (auto) 176 10^3/uL (140-450); Red Blood Cells 4.97 10^6/uL (4.5-5.90); Red Cell Distribution Width 16.1 % (11.8-14.3); White Blood Cell 6.6 10^3/uL (4.4-10.8)
[2018-05-05 15:55] LABS: Albumin 3.4 g/dL (3.4-5.0); BUN/Creatinine Ratio 10.5; Calcium 8.2 mg/dL (8.5-10.1); Potassium 3.8 mmol/L (3.5-5.1)
[2018-05-05 15:58] LABS: Bilirubin, Total 0.9 mg/dL (0.2-1.0); Total Protein 6.8 g/dL (6.4-8.2)
[2018-05-05] MEDS ORDERED: SODIUM CHLORIDE 0.9% 1,000 ML IV ONE ×3 (16:39→18:46)
[2018-05-05] MEDS ORDERED: InsuLIN R (HUMAN) 100 UNITS in SODIUM CHL 0.9% 99 ML IV SCH (18:46)
[2018-05-05] MEDS ORDERED: SODIUM CHLORIDE 0.9% 1,000 ML IV SCH ×2 (18:46→22:46)
[2018-05-05] MEDS ORDERED: DEXTROSE (50%) 50ML SYRG IV PRN (19:00)
[2018-05-05] MEDS ORDERED: ACCU-CHEK COMFORT CURVE STRIP VI SCH (19:30)
[2018-05-05] MEDS ORDERED: InsuLIN REG 1unit/0.01ml Soln (100units/ml) ONE (19:49)
[2018-05-05] MEDS ORDERED: SODIUM CHLORIDE 0.9% 500 ML IV ONE (21:00)
[2018-05-05] MEDS ORDERED: ONDANSETRON HCL 4 MG/2 ML VIAL IV PRN (21:00)
[2018-05-05] MEDS ORDERED: ACETAMINOPHEN 325 MG TAB PO PRN (21:00)
[2018-05-05] MEDS ORDERED: TEMAZEPAM 15 MG CAP PO PRN (21:00)
[2018-05-05] MEDS: SODIUM CHLORIDE 0.9% 1,000 ML IV SCH (21:09)
[2018-05-05] MEDS: FAMOTIDINE 20 MG TAB PO SCH (22:20)
[2018-05-05] MEDS: GABAPENTIN 100 MG CAP PO SCH (22:20)
[2018-05-05 22:35] LABS: Amphetamine Screen, Urine NEGATIVE (NEGATIVE); Barbiturate Scree,Urine NEGATIVE (NEGATIVE); Benzodiazephine Screen, Urine NEGATIVE (NEGATIVE); Cannabinoid Screen, Urine POSITIVE (NEGATIVE); Cocaine Screen, Urine NEGATIVE (NEGATIVE); Opiate Scree,Urine NEGATIVE (NEGATIVE); Phencyclidine Screen, Urine NEGATIVE (NEGATIVE)
[2018-05-06] MEDS: ACCU-CHEK COMFORT CURVE STRIP VI SCH ×6 (00:27→20:09)
[2018-05-06] MEDS ORDERED: SODIUM CHLORIDE 0.9% 1,000 ML IV SCH (00:46)
[2018-05-06] MEDS: InsuLIN REG 1unit/0.01ml Soln (100units/ml) SC SCH ×6 (01:05→20:26)
[2018-05-06] MEDS ORDERED: LOPERAMIDE HCL 2 MG CAP PO PRN (01:45)
[2018-05-06] MEDS: HYDROcodone-ACET 5/325MG TAB PO PRN ×2 (01:52→08:47)
[2018-05-06] MEDS: DEXTROSE (50%) 50ML SYRG IV PRN ×2 (03:32→16:55)
[2018-05-06] MEDS: GABAPENTIN 100 MG CAP PO SCH ×3 (06:26→22:00)
[2018-05-06] MEDS: SODIUM CHLORIDE 0.9% 1,000 ML IV SCH ×2 (06:26→18:43)
[2018-05-06 07:27] LABS: Calcium 7.9 mg/dL (8.5-10.1); Potassium 3.1 mmol/L (3.5-5.1)
[2018-05-06 07:29] LABS: BUN/Creatinine Ratio 11.8
[2018-05-06] MEDS: clonazePAM 0.5 MG TAB PO PRN (08:47)
[2018-05-06] MEDS: PANCREATIC ENZYMES 4200 UNIT CAP PO SCH ×3 (08:48→18:43)
[2018-05-06] MEDS: FAMOTIDINE 20 MG TAB PO SCH ×2 (10:00→22:00)
[2018-05-06] MEDS ORDERED: QUEtiapine FUMARATE 100 MG TAB PO ONE (11:15)
[2018-05-06] MEDS: chlordiazePOXIDE HCL 25 MG CAP PO SCH ×3 (15:00→23:30)
[2018-05-06] MEDS ORDERED: LORazepam 2MG/ML-1ML VIAL IV PRN (15:00)
[2018-05-06] MEDS ORDERED: SODIUM CHLORIDE 0.9% 1,000 ML IV ONE (15:00)
[2018-05-06] MEDS ORDERED: POTASSIUM CHLORIDE 8 MEQ TAB PO ONE (15:00)
[2018-05-06] MEDS ORDERED: LORazepam 2MG/ML-1ML VIAL IV ONE ×2 (15:00→17:00)
[2018-05-06] MEDS ORDERED: ONDANSETRON HCL 4 MG/2 ML VIAL IV PRN (15:00)
[2018-05-06] MEDS ORDERED: LORazepam 2MG/ML-1ML VIAL ONE (15:04)
[2018-05-06] MEDS ORDERED: MULTIPLE VITAMIN 10 ML, MAGNESIUM SULF SDV 50% 8 MEQ in D5W/SOD CHL 0.45% 1,000 ML IV SCH (16:00)
[2018-05-06] MEDS ORDERED: diphenhdrAMINE HCL 50 MG/1 ML VL IV ONE (17:00)
[2018-05-06] MEDS ORDERED: HALOPERIDOL LACTATE 5 MG/ML INJ VIAL IM ONE (17:00)
[2018-05-06] MEDS: ATENOLOL 25 MG TAB PO SCH (22:00)
[2018-05-07] MEDS: HYDROcodone-ACET 5/325MG TAB PO PRN (01:20)
[2018-05-07] MEDS: clonazePAM 0.5 MG TAB PO PRN (01:20)
[2018-05-07] MEDS: DEXTROSE (50%) 50ML SYRG IV PRN (01:21)
--- NOTE | 2018-05-07 01:30 | NUR ---
MS admit from ER DELBERT FUENTES admitted to tele/MS after SBAR received. Patient oriented to KAT CHERRY RN primary RN, unit, room, bed, and unit policies regarding patient care and visiting hours. Patient weighed by bedscale and encouraged to call if they need something. All questions and concerns addressed, patient verbalized understanding. Note:
--- NOTE | 2018-05-07 01:30 | NUR ---
PT BS UPON ARRIVAL ON FLOOR WAS 58 SNACK AND D50 GIVEN TO PATIENT. PATIENT TOLERATED WELL AND CONTINUES ON BANANA BAG
--- NOTE | 2018-05-07 02:45 | NUR ---
PATIENT REQUESTED TO HAVE HIS BS CHECK, BS-421 PATIENT WAS GIVEN D50 EARLIER WILL CONTINUE TO MONITOR PATIENT.
[2018-05-07] MEDS: SODIUM CHLORIDE 0.9% 1,000 ML IV SCH (03:00)
[2018-05-07] MEDS: ACCU-CHEK COMFORT CURVE STRIP VI SCH ×4 (04:28→12:00)
[2018-05-07] MEDS: InsuLIN REG 1unit/0.01ml Soln (100units/ml) SC SCH ×4 (04:28→12:00)
[2018-05-07 05:00] VITALS: BP 144/72
--- NOTE | 2018-05-07 05:07 | NUR ---
PT BS-560 ADMINSITERED 20 UNITS OR REGULAR INSULIN. RECHECKED PATIENT BS-455. PATIENT PREVIOUS BS @ 0100 WAS 58 D50 WAS GIVEN ALONG WITH SNACK. PATIENT STATES HE TAKES LANTUS AT NIGHT. PAGES HOSPITALIST AWAITING CALL BACK.
--- NOTE | 2018-05-07 05:45 | NUR ---
REPAGED HOSPITALIST REGARDING PATIENT BS AWAITING CALL BACK.
[2018-05-07] MEDS: chlordiazePOXIDE HCL 25 MG CAP PO SCH (06:27)
[2018-05-07] MEDS: GABAPENTIN 100 MG CAP PO SCH (06:27)
[2018-05-07 06:39] LABS: Basophils # (auto) 0 uL; Basophils % (auto) 0.2 % (0.0-2.0); Eosinophils # (auto) 0 uL; Eosinophils % (auto) 0.8 % (0.0-7.0); Hematocrit 36.3 % (41.0-53.0); Hemoglobin 12.1 g/dL (13.5-17.5); Lymphocytes # (auto) 1.4 uL; Mean Corpuscular Hemoglobin 28.6 pg (28.0-32.0); Mean Corpuscular Hgb Conc. 33.4 g/dL (32.0-36.0); Mean Corpuscular Volume 85.9 fL (80.0-100.0); Monocytes # (auto) 0.4 uL; Neutrophils # (auto) 3.4 uL; Nucleated Red Blood Cells % 0.1 %; Platelet Count (auto) 85 10^3/uL (140-450); Red Blood Cells 4.22 10^6/uL (4.5-5.90); Red Cell Distribution Width 16.1 % (11.8-14.3); White Blood Cell 5.2 10^3/uL (4.4-10.8)
[2018-05-07 06:56] LABS: BUN/Creatinine Ratio 4.4; Calcium 8.3 mg/dL (8.5-10.1)
[2018-05-07 07:13] LABS: Potassium 2.8 mmol/L (3.5-5.1)
--- NOTE | 2018-05-07 08:00 | NUR ---
Opening Shift Note Assumed care of patient, awake, alert and oriented X4. No S/S of distress/SOB or pain. IV to left antecubital leaking, new IV established to right forearm, 20 gauge, patent and infusing 0.9% NS @ 100 ml/hr. Instructed on POC and to call for assist PRN, verbalized understanding. Bed locked, in lowest position, call light within reach, sitter remains at bedside for patient safety, will continue to monitor for changes Q1hr and PRN.
[2018-05-07 08:30] VITALS: BP 141/93
--- NOTE | 2018-05-07 08:45 | NUR ---
DELBERT FUENTES states they want to leave the floor Against Medical Advice (AMA) to go outside and smoke. Patient encouraged to stay on floor and not smoke. Patient advised of the risks and benefits of leaving AMA. Tsering terry, escorted patient outside to smoke. Patient verbalized understanding and signed required AMA form.
--- NOTE | 2018-05-07 09:10 | NUR ---
Patient returned from smoking with adrianna Caglely, no distress noted upon return.
[2018-05-07] MEDS: PANCREATIC ENZYMES 4200 UNIT CAP PO SCH ×2 (10:00→12:41)
[2018-05-07] MEDS: FAMOTIDINE 20 MG TAB PO SCH (10:00)
[2018-05-07] MEDS: ATENOLOL 25 MG TAB PO SCH (10:01)
--- NOTE | 2018-05-07 11:14 | NUR ---
DELBERT FUENTES states they want to leave the floor Against Medical Advice (AMA) to go outside and smoke. Patient encouraged to stay on floor and not smoke. Patient advised of the risks and benefits of leaving AMA. Patient verbalized understanding.
[2018-05-07] MEDS ORDERED: POTASSIUM CHL 20 Meq TABLET PO ONE (13:45)
--- NOTE | 2018-05-07 13:52 | NUR ---
ROUNDS Dr Olivier at bedside for rounds, new orders received and followed through. Patient updated on plan of care, verbalized understanding.
[2018-05-07 13:55] VITALS: BP 141/93
--- NOTE | 2018-05-07 14:25 | NUR ---
Patient wanting to leave AMA, informed doctor is discharging and I will have his paperwork ready in 5 minutes, verbalized understanding. When I went in to his room to go over discharge paperwork and remove his IV , he was not in the room. Security was called, description given of patient, they are looking for him at this time. BELEN Thacker, charge nurse made aware. Per security, they were unable to locate the patient. [employer] notified, spoke to José Luis with dispatch.
[2018-05-07] MEDS ORDERED: chlordiazePOXIDE HCL 25 MG CAP PO SCH (22:00)
--- NOTE | 2018-05-08 10:06 | NUR ---
assessment Patient left AMA prior to being assessed. Per consult homeless/alcohol abuse. Addendum: 05/08/18 at 1407 by Trinity Velásquez Amended: Links added.
[2018-05-08] MEDS ORDERED: chlordiazePOXIDE HCL 25 MG CAP PO SCH (22:00)
[2018-05-10] MEDS ORDERED: chlordiazePOXIDE HCL 25 MG CAP PO SCH (07:00)
== END 2018-05-07 14:05 | disposition left against medical advice (07) | DRG 420 ==
LOC: ER 14:25 → OVERFLOW 20:57 → WEST WING 05-06 23:01
PROVIDERS: ADMIT Nurse Practitioner; ATTEND Internal Medicine
DX: E11.10 Type 2 diabetes mellitus with ketoacidosis without coma (principal); N17.0 Acute kidney failure with tubular necrosis; G93.41 Metabolic encephalopathy; F10.231 Alcohol dependence with withdrawal delirium; E11.22 Type 2 diabetes mellitus with diabetic chronic kidney disease; E87.1 Hypo-osmolality and hyponatremia; E11.21 Type 2 diabetes mellitus with diabetic nephropathy; E87.6 Hypokalemia; F32.9 Major depressive disorder, single episode, unspecified; E86.0 Dehydration; F17.210 Nicotine dependence, cigarettes, uncomplicated; R56.9 Unspecified convulsions; K21.9 Gastro-esophageal reflux disease without esophagitis; N18.9 Chronic kidney disease, unspecified; Z53.21 Procedure and treatment not carried out due to patient leaving prior to being seen by health care provider; Z59.0 Homelessness; Z87.19 Personal history of other diseases of the digestive system; Z82.49 Family history of ischemic heart disease and other diseases of the circulatory system; Z91.19 Patient's noncompliance with other medical treatment and regimen; Z83.3 Family history of diabetes mellitus
CPT/HCPCS: 36415; 80048; 80053; 80307; 80320; 82150; 82962; 83036; 83690; 85025; 87081; 96361; 96365; 96375; A6257; G0378; J1815; J2405